=== PATIENT | male | born 1980 | race Caucasian/White ===

== ENCOUNTER 2020-01-05 11:30 | Inpatient (IN) | payer MEDICAID ==
[~2020-01-05] VITALS: Ht 185.4 cm; Wt 85.2 kg
[2020-01-05] MEDS ORDERED: morphine 2 MG/ML inj. syringe IV PRN (17:30)
[2020-01-05] MEDS ORDERED: magnesium 2GM in 50ml NS 50 ML IV PRN (17:30)
[2020-01-05] MEDS ORDERED: potassium CL 10mEq/100ml bag 100 ML IV PRN ×2 (17:30)
[2020-01-05] MEDS ORDERED: magnesium hydroxide 30ml (MOM) UD suspension PO PRN (17:30)
[2020-01-05] MEDS ORDERED: potassium Cl 20 mEq SR tablet PO PRN ×2 (17:30)
[2020-01-05] MEDS ORDERED: magnesium 4gm in 100ml NS 100 ML IV PRN (17:30)
[2020-01-05] MEDS ORDERED: magnesium Cl slow-release 64mg tablet PO PRN (17:30)
[2020-01-05] MEDS ORDERED: ondansetron/PF 4mg/2ml inj IV PRN (17:30)
[2020-01-05] MEDS ORDERED: mag hydrox/Alum hydrox/simeth 30ml oral suspension PO PRN (17:30)
[2020-01-05] MEDS ORDERED: LIDOcaine 2% 10ml TOPICAL JELLY (Urojet) TP ONE (17:30)
[2020-01-05] MEDS ORDERED: acetaminophen 325mg tablet PO PRN ×2 (17:30→17:50)
[2020-01-05] MEDS: normal saline 1000ml 1,000 ML IV SCH (17:49)
[2020-01-05 18:14] LABS: BASOPHILS # (AUTO) 0.1 X10'3 (0-0.2); BASOPHILS % (AUTO) 0.9 % (0-1); EOSINOPHILS # (AUTO) 0.1 X10'3 (0-0.9); EOSINOPHILS % (AUTO) 1.3 % (0-6); HEMATOCRIT 39.9 % (42.0-52.0); HEMOGLOBIN 12.8 g/dl (14.0-17.9); LYMPHOCYTES # (AUTO) 2.5 X10'3 (1.1-4.8); LYMPHOCYTES % (AUTO) 22.3 % (21-51); MEAN CORPUSCULAR HEMOGLOBIN 30.8 PG (27.0-31.0); MEAN CORPUSCULAR HGB CONC 32.1 g/dL (33.0-36.5); MEAN PLATELET VOLUME 9.2 FL (7.4-10.4); MONOCYTES # (AUTO) 1.6 X10'3 (0-0.9); MONOCYTES % (AUTO) 14.4 % (2-12); NEUTROPHILS # (AUTO) 6.9 X10'3 (1.8-7.7); NEUTROPHILS % (AUTO) 61.1 % (42-75); PLATELET COUNT 353 X10'3 (140-440); RED BLOOD COUNT 4.16 X10'6 (4.70-6.10); RED CELL DISTRIBUTION WIDTH 16.5 % (11.5-14.5); WHITE BLOOD COUNT 11.2 X10'3 (4.5-11.0)
[2020-01-05 18:21] LABS: ANION GAP 24 (8-16); BLOOD UREA NITROGEN 23 MG/DL (7-18); BUN/CREATININE RATIO 14.7 (5.4-32.0); CALCIUM 9.6 MG/DL (8.5-10.1); CHLORIDE 102 MMOL/L (99-107); CREATININE 1.56 MG/DL (0.60-1.10); GLUCOSE 164 MG/DL (70-104); MAGNESIUM 2.2 MG/DL (1.5-2.4); POTASSIUM 3.8 MMOL/L (3.5-5.1); SODIUM 141 MMOL/L (135-145); TOTAL CARBON DIOXIDE 15.1 MMOL/L (24-32); eGFR 50 ML/MIN
[2020-01-05 18:30] VITALS: BP 187/79
--- NOTE | 2020-01-05 18:34 | NUR ---
Recieved Report from Barbara from [facility]. Patient was reported to have stable vitals signs, with a heart rate that jumps up to the 150s and then comes back down, all other vital signs were reported as stable. 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 Patient arrived at 1717 to the floor, patient was transferred to the bed and was extremely diaphoretic, HR was reported to be in the 170s. Upon placing the patient on tele and getting a set of vital signs the patient's HR was in the 170s, RR was in the 60s, BP was 205/77 and the patient temp was 103.9 axillary. RN tried to have a rapid called and the CRN contacted admitting physician who reportedly was putting in orders for the patient. The patient had ice packs placed on groin and under the armpits. Patient was given tylenol by the Peg tube and was placed on a simple mask with o2 at 15L. RN stayed with patient until shift change as the oxygen mask was falling off due to the patient's movements. Gave report to on coming ANAT Talamantes.
[2020-01-05 19:00] VITALS: BP 138/77
[2020-01-05] MEDS: levetiracetam 100mg/ml oral solution 5ml UD cup GT SCH (19:03)
[2020-01-05] MEDS: docusate sodium 100mg/10ml UD cup PO SCH (19:05)
[2020-01-05] MEDS: K and/or MAG REPLACEMENT MC SCH (20:00)
[2020-01-05] MEDS ORDERED: MYCOL15CR TP (20:35)
[2020-01-05] MEDS ORDERED: PANT-47 IV (20:35)
[2020-01-05] MEDS ORDERED: LEVE10002 GT (20:35)
[2020-01-05] MEDS ORDERED: LIDO700A32 TOP (20:35)
[2020-01-05] MEDS ORDERED: POLY1DRO2 OP (20:41)
[2020-01-05] MEDS ORDERED: ACET-1008 GT ×2 (20:41)
[2020-01-05] MEDS ORDERED: DOCU1ENE3 RC (20:41)
[2020-01-05] MEDS ORDERED: POLY17PO10 GT (20:41)
[2020-01-05] MEDS ORDERED: PIPE3.3739 IV (20:41)
[2020-01-05] MEDS ORDERED: BENZOCAINE RC PRN (21:50)
[2020-01-05] MEDS ORDERED: DOCUSATE SODIUM RC PRN (21:50)
[2020-01-05] MEDS ORDERED: acetaminophen 325mg tablet GT PRN (21:50)
[2020-01-05] MEDS ORDERED: polyethylene glycol 3350 17gm powd pack GT PRN (21:50)
[2020-01-05 22:00] VITALS: BP 169/92
[2020-01-05] MEDS: piperacillin/tazo 3.375gm/50ml 50 ML IV SCH (23:44)
[2020-01-06] VITALS (7 sets, daily range): BP systolic 115–182; BP diastolic 52–89
[2020-01-06] MEDS: acetaminophen 325mg tablet GT PRN ×2 (04:01→11:47)
[2020-01-06 05:13] LABS: BASOPHILS # (AUTO) 0.1 X10'3 (0-0.2); BASOPHILS % (AUTO) 0.8 % (0-1); EOSINOPHILS % (AUTO) 0.1 % (0-6); HEMATOCRIT 41.1 % (42.0-52.0); HEMOGLOBIN 13.1 g/dl (14.0-17.9); LYMPHOCYTES # (AUTO) 1.8 X10'3 (1.1-4.8); LYMPHOCYTES % (AUTO) 14.7 % (21-51); MEAN CORPUSCULAR HEMOGLOBIN 30.1 PG (27.0-31.0); MEAN CORPUSCULAR HGB CONC 31.9 g/dL (33.0-36.5); MEAN CORPUSCULAR VOLUME 94.2 FL (78-98); MEAN PLATELET VOLUME 9.1 FL (7.4-10.4); MONOCYTES # (AUTO) 2.1 X10'3 (0-0.9); MONOCYTES % (AUTO) 17.1 % (2-12); NEUTROPHILS # (AUTO) 8.4 X10'3 (1.8-7.7); NEUTROPHILS % (AUTO) 67.3 % (42-75); PLATELET COUNT 351 X10'3 (140-440); RED BLOOD COUNT 4.36 X10'6 (4.70-6.10); RED CELL DISTRIBUTION WIDTH 16.2 % (11.5-14.5); WHITE BLOOD COUNT 12.4 X10'3 (4.5-11.0)
[2020-01-06 05:14] LABS: ANION GAP 15 (8-16); BLOOD UREA NITROGEN 34 MG/DL (7-18); BUN/CREATININE RATIO 25.8 (5.4-32.0); CHLORIDE 108 MMOL/L (99-107); CREATININE 1.32 MG/DL (0.60-1.10); GLUCOSE 58 MG/DL (70-104); MAGNESIUM 2.2 MG/DL (1.5-2.4); POTASSIUM 5.3 MMOL/L (3.5-5.1); SODIUM 147 MMOL/L (135-145); TOTAL CARBON DIOXIDE 23.8 MMOL/L (24-32); eGFR 60 ML/MIN
--- NOTE | 2020-01-06 06:12 | NUR ---
Problems reprioritized. Patient report given, questions answered & plan of care reviewed with Domitila COPPOLA.
--- NOTE | 2020-01-06 06:13 | NUR ---
Patient in room PCU 3028. I have received report from Domitila COPPOLA and had the opportunity to ask questions and assume patient care.
[2020-01-06 06:44] LABS: TOTAL CELLS COUNTED 100
[2020-01-06 06:45] LABS: MONOCYTES % (MANUAL) 17 % (2-12); NEUTROPHILS % (MANUAL) 70 % (42-75)
[2020-01-06 06:46] LABS: PLATELET ESTIMATE NORMAL
[2020-01-06 06:47] LABS: ANISOCYTOSIS 1+
[2020-01-06] MEDS: levetiracetam 100mg/ml oral solution 5ml UD cup GT SCH ×2 (07:05→20:50)
[2020-01-06] MEDS: pantoprazole 40 MG vial IV SCH ×2 (07:06→20:50)
[2020-01-06] MEDS: LIDOcaine 5% patch TP SCH (07:06)
[2020-01-06] MEDS: piperacillin/tazo 3.375gm/50ml 50 ML IV SCH ×2 (07:06→16:31)
[2020-01-06] MEDS: normal saline 1000ml 1,000 ML IV SCH (07:12)
[2020-01-06] MEDS: K and/or MAG REPLACEMENT MC SCH ×2 (07:13→20:00)
[2020-01-06] MEDS: docusate sodium 100mg/10ml UD cup PO SCH (07:13)
[2020-01-06] MEDS ORDERED: polyvinyl alcohol ophthalmic drops 15ml bottle EACHEYE PRN (08:00)
[2020-01-06] MEDS: nystatin/triamcinolone cream 15gm TP SCH ×2 (08:00→20:51)
[2020-01-06] MEDS ORDERED: mag hydrox/Alum hydrox/simeth 30ml oral suspension GT PRN (09:14)
[2020-01-06] MEDS ORDERED: magnesium hydroxide 30ml (MOM) UD suspension GT PRN (09:15)
[2020-01-06] MEDS ORDERED: POTASSIUM BICARB 20meq eff tab 20 MEQ TABLET.EFF PO PRN (09:16)
--- NOTE | 2020-01-06 11:05 | NUR ---
Patient thrashing in bed as nursing assoc tries to obtain blood pressure, will try blood pressure again once patient settles down. Addendum: 01/06/20 at 1238 by Susy Pérez RN Tried to retake BP on leg, BP wouldnt take due to patient thrashing in bed, not accurate.
--- NOTE | 2020-01-06 14:05 | NUR ---
Patients , Francy, called and was given a small update on the patients plan of care.
--- NOTE | 2020-01-06 14:34 | NUR ---
Spoke to OR, plan is to pick the pt up at 5 or 6 PM for surgery.
--- NOTE | 2020-01-06 14:54 | NUR ---
Attempted to call Dr Reed to obtain an order for Ativan as the patient is very distraught/anxious about surgery, will try again in a couple minutes. Addendum: 01/06/20 at 1458 by Susy Pérez RN Spoke to Dr Reed via telephone, MD orozco with one time ativan order, will continue to monitor the patient closely.
[2020-01-06] MEDS ORDERED: LORazepam 2 mg/ml vial IV ONE (15:00)
[2020-01-06] MEDS ORDERED: albuterol 2.5 MG/3 ML nebule CONTNEB PRN (15:05)
[2020-01-06] MEDS ORDERED: morphine 4 MG/ML inj SYRINge IV PRN (15:30)
[2020-01-06] MEDS ORDERED: ringers solution, lacted 1,000 ML IV SCH (15:30)
[2020-01-06] MEDS ORDERED: morphine 2 MG/ML inj. syringe IV PRN (15:30)
[2020-01-06] MEDS ORDERED: ondansetron/PF 4mg/2ml inj IV PRN (15:30)
[2020-01-06] MEDS ORDERED: proCHLORperazine 10 MG/2 ml inj IV PRN (15:30)
[2020-01-06] MEDS ORDERED: meperidine/PF 25mg/ml syringe IV PRN ×3 (15:30)
[2020-01-06] MEDS: sodium chloride 0.45% 1,000 ML IV SCH (15:34)
--- NOTE | 2020-01-06 16:18 | NUR ---
Spoke to patients mom, Barbara, and updated her on the patients plan of care.
[2020-01-06] MEDS ORDERED: famotidine/PF 10 mg/ml inj IV ONE (16:30)
[2020-01-06] MEDS ORDERED: glucagon, human recombinant 1mg kit SUBCUT PRN (16:45)
[2020-01-06] MEDS ORDERED: dextrose 50%-water 50ml dispensing syringe IV PRN ×2 (16:45)
--- NOTE | 2020-01-06 16:57 | NUR ---
Got a call from OR, Dr Winchester is going to do surgery tomorrow around noon.
--- NOTE | 2020-01-06 18:18 | NUR ---
Problems reprioritized. Patient report given, questions answered & plan of care reviewed with MIKAELA COPPOLA.
[2020-01-06] MEDS: mineral oil/petrolatum, white cream 113gm jar TP SCH (20:50)
[2020-01-06] MEDS: lactobacillus rhamnosus 10,000 MMU CELLS/CAPSULE PO SCH (20:50)
[2020-01-06] MEDS: docusate sodium 100mg/10ml UD cup GT SCH (20:51)
[2020-01-07] VITALS (12 sets, daily range): BP systolic 137–173; BP diastolic 50–82
[2020-01-07] MEDS: sodium chloride 0.45% 1,000 ML IV SCH (04:25)
[2020-01-07 05:44] LABS: ALBUMIN 2.9 G/DL (3.4-5.0); ANION GAP 10 (8-16); BLOOD UREA NITROGEN 33 MG/DL (7-18); CALCIUM 9.7 MG/DL (8.5-10.1); CHLORIDE 109 MMOL/L (99-107); CREATININE 1.03 MG/DL (0.60-1.10); GLUCOSE 112 MG/DL (70-104); MAGNESIUM 2.2 MG/DL (1.5-2.4); POTASSIUM 3.8 MMOL/L (3.5-5.1); SODIUM 146 MMOL/L (135-145); TOTAL CARBON DIOXIDE 27.3 MMOL/L (24-32); eGFR 80 ML/MIN
[2020-01-07 05:48] LABS: BASOPHILS # (AUTO) 0.1 X10'3 (0-0.2); EOSINOPHILS # (AUTO) 0.2 X10'3 (0-0.9); HEMOGLOBIN 11.9 g/dl (14.0-17.9); LYMPHOCYTES # (AUTO) 1.1 X10'3 (1.1-4.8); NEUTROPHILS # (AUTO) 3.4 X10'3 (1.8-7.7)
[2020-01-07 05:51] LABS: BASOPHILS % (AUTO) 1.1 % (0-1); EOSINOPHILS % (AUTO) 3.3 % (0-6); HEMATOCRIT 36.3 % (42.0-52.0); LYMPHOCYTES % (AUTO) 18.3 % (21-51); MEAN CORPUSCULAR HEMOGLOBIN 30.6 PG (27.0-31.0); MEAN CORPUSCULAR HGB CONC 32.7 g/dL (33.0-36.5); MEAN CORPUSCULAR VOLUME 93.7 FL (78-98); MEAN PLATELET VOLUME 8.7 FL (7.4-10.4); MONOCYTES # (AUTO) 1.2 X10'3 (0-0.9); MONOCYTES % (AUTO) 20.7 % (2-12); NEUTROPHILS % (AUTO) 56.6 % (42-75); PLATELET COUNT 321 X10'3 (140-440); RED BLOOD COUNT 3.88 X10'6 (4.70-6.10); RED CELL DISTRIBUTION WIDTH 16.3 % (11.5-14.5)
--- NOTE | 2020-01-07 06:19 | NUR ---
Problems reprioritized. Patient report given, questions answered & plan of care reviewed with ANAT Mariano.
--- NOTE | 2020-01-07 06:44 | NUR ---
Patient in room PCU 3028. I have received report from ANAT Capone and had the opportunity to ask questions and assume patient care. Patient asleep in bed and in no acute distress.
[2020-01-07 07:43] LABS: ANISOCYTOSIS 1+; PLATELET ESTIMATE NORMAL; TOTAL CELLS COUNTED 100
[2020-01-07] MEDS: lactobacillus rhamnosus 10,000 MMU CELLS/CAPSULE PO SCH ×2 (07:49→19:56)
[2020-01-07] MEDS: pantoprazole 40 MG vial IV SCH ×2 (07:49→19:57)
[2020-01-07] MEDS: piperacillin/tazo 3.375gm/50ml 50 ML IV SCH ×3 (07:49→15:56)
[2020-01-07] MEDS: nystatin/triamcinolone cream 15gm TP SCH ×2 (07:51→20:24)
[2020-01-07] MEDS: mineral oil/petrolatum, white cream 113gm jar TP SCH ×2 (07:51→20:24)
[2020-01-07] MEDS: LIDOcaine 5% patch TP SCH ×2 (07:51→08:00)
[2020-01-07] MEDS: docusate sodium 100mg/10ml UD cup GT SCH ×2 (07:52→19:56)
[2020-01-07] MEDS: K and/or MAG REPLACEMENT MC SCH ×2 (07:52→20:00)
[2020-01-07] MEDS: levetiracetam 100mg/ml oral solution 5ml UD cup GT SCH ×2 (09:53→19:56)
--- NOTE | 2020-01-07 11:08 | NUR ---
OR called and are sending up orders for patient to be picked up for procedure.
[2020-01-07] MEDS ORDERED: BUPIVAcaine/PF 2.5 mg/ml (0.25%) 30ml vial ONE (11:14)
[2020-01-07] MEDS ORDERED: famotidine/PF 10 mg/ml inj IV ONE (11:15)
--- NOTE | 2020-01-07 11:15 | NUR ---
Orders put in for 20mg pepcid IV per physician order for cholecystectomy.
--- NOTE | 2020-01-07 11:26 | NUR ---
Called report to ANAT Anand in recovery for patient to be picked up for cholecystectomy.
--- NOTE | 2020-01-07 11:44 | NUR ---
Patient left for cholecystectomy.
--- NOTE | 2020-01-07 11:51 | NUR ---
Called patient's mother Barbara to give her an update and that her son was going to get his cholecystectomy done today.
[2020-01-07] MEDS ORDERED: midazolam 2 mg/2 ml injection ONE (12:06)
[2020-01-07] MEDS ORDERED: fentaNYL/PF 50MCG/1 ML 2ML syringe ONE ×2 (12:06→12:38)
[2020-01-07] MEDS ORDERED: rocuronium 10mg/ml inj IV ONE ×2 (12:07→12:17)
[2020-01-07] MEDS ORDERED: LIDOcaine 2% (20mg/ml) 5ml vial ONE (12:07)
[2020-01-07] MEDS ORDERED: propofol inj 20 ML IV ONE (12:07)
[2020-01-07] MEDS ORDERED: sevoflurane 250ml liquid IH ONE (12:17)
[2020-01-07] MEDS ORDERED: sugammadex 200mg/2ml injection IV ONE (13:39)
--- NOTE | 2020-01-07 13:43 | NUR ---
Received from OR via , accompanied by Anesthesiologist DR DELCID and report given by Anesthesiolgist. AWAKENS TO VOICE. VITALS STABLE. DRESSINGS DI. SHAKES HEAD YES WHEN ASKED IF IN PAIN. WILL MEDICATE.
[2020-01-07] MEDS ORDERED: meperidine/PF 25mg/ml syringe ONE (14:08)
[2020-01-07] MEDS ORDERED: ringers solution, lacted 1,000 ML IV SCH (14:17)
[2020-01-07] MEDS ORDERED: proCHLORperazine 10 MG/2 ml inj IV PRN (14:20)
[2020-01-07] MEDS ORDERED: ondansetron/PF 4mg/2ml inj IV PRN (14:20)
[2020-01-07] MEDS ORDERED: morphine 2 MG/ML inj. syringe IV PRN (14:20)
[2020-01-07] MEDS ORDERED: meperidine/PF 25mg/ml syringe IV PRN ×3 (14:20)
[2020-01-07] MEDS ORDERED: morphine 4 MG/ML inj SYRINge IV PRN (14:20)
[2020-01-07] MEDS ORDERED: glycopyrrolate 0.2mg/ml inj ONE (14:22)
[2020-01-07] MEDS ORDERED: labetalol 20mg/4ml (5mg/ml) syringe IV ONE (14:22)
[2020-01-07] MEDS ORDERED: neostigmine methylsulfate 1 MG/ML 10ml vial ONE (14:22)
[2020-01-07] MEDS ORDERED: hydrALAZINE 20mg/ml inj. IV ONE (14:22)
[2020-01-07] MEDS ORDERED: ondansetron/PF 4mg/2ml inj ONE (14:22)
[2020-01-07] MEDS ORDERED: dexamethasone sod phosphate 4mg/ml inj. ONE (14:22)
--- NOTE | 2020-01-07 14:38 | NUR ---
Received report from ANAT Mendoza from recovery. Awaiting patient's arrival back to room 3028B.
--- NOTE | 2020-01-07 14:43 | NUR ---
Report called to receiving nurse. Transferred via BED Belongings . Special Issues communicated to receiving nurse. AWAKE AND ABLE TO COMMUNICATE NEEDS. VITALS STABLE. DRESSINGS DI. STATES PAIN IMPROVING BY NODDING YES. TO U RM 1407C AT THIS TIME.
--- NOTE | 2020-01-07 17:06 | NUR ---
Called patient's mother Barbara to give her an update on patient's cholecystectomy and was able to ask questions to be able to DART patient.
--- NOTE | 2020-01-07 18:00 | NUR ---
VS charted at 1800. Post op vitals were to end at 1900, however machine did not record correctly.
--- NOTE | 2020-01-07 18:30 | NUR ---
Patient in room PCU 3028. I have received report from ANAT Mariano and had the opportunity to ask questions and assume patient care.
--- NOTE | 2020-01-07 18:35 | NUR ---
Problems reprioritized. Patient report given, questions answered & plan of care reviewed with ANAT Padilla. Patient stable at transfer of care.
--- NOTE | 2020-01-07 18:45 | NUR ---
I have received report from ANAT Cruz and had the opportunity to ask questions and assume patient care.
--- NOTE | 2020-01-07 18:45 | NUR ---
Patient in room PCU 3028. I have received report from ANAT Mariano and had the opportunity to ask questions and assume patient care.
[2020-01-08] MEDS: sodium chloride 0.45% 1,000 ML IV SCH ×3 (00:11→11:27)
[2020-01-08] MEDS: piperacillin/tazo 3.375gm/50ml 50 ML IV SCH ×3 (00:14→15:52)
[2020-01-08 02:00] VITALS: BP 176/89
--- NOTE | 2020-01-08 04:17 | NUR ---
Patient's murphy was not draining properly, there was urine coming out of penis. I flushed the murphy, and it was stil leaking. A new murphy was placedm and it is no longer leaking around the meatus. Addendum: 01/08/20 at 0424 by Randy Garza RN Amended: Links added. Addendum: 01/08/20 at 0425 by Randy Garza RN The patient had the murphy placed previous to [facility];ization/ Patient came from [facility].
--- NOTE | 2020-01-08 04:26 | NUR ---
Day shift hooked up post op vitals. They qwere to be done around 1900 and nothing had been recorded on the vital machine. Addendum: 01/08/20 at 0427 by Randy Garza RN Amended: Links added.
[2020-01-08 05:16] LABS: ALBUMIN 2.7 G/DL (3.4-5.0); ANION GAP 12 (8-16); BLOOD UREA NITROGEN 24 MG/DL (7-18); BUN/CREATININE RATIO 27.3 (5.4-32.0); CHLORIDE 108 MMOL/L (99-107); CREATININE 0.88 MG/DL (0.60-1.10); GLUCOSE 99 MG/DL (70-104); MAGNESIUM 1.8 MG/DL (1.5-2.4); POTASSIUM 3.4 MMOL/L (3.5-5.1); SODIUM 148 MMOL/L (135-145); TOTAL CARBON DIOXIDE 27.9 MMOL/L (24-32); eGFR > 90 ML/MIN
[2020-01-08 05:31] LABS: BASOPHILS % (AUTO) 0.7 % (0-1); EOSINOPHILS % (AUTO) 0.7 % (0-6); HEMATOCRIT 36.4 % (42.0-52.0); HEMOGLOBIN 11.7 g/dl (14.0-17.9); LYMPHOCYTES # (AUTO) 1.1 X10'3 (1.1-4.8); MEAN CORPUSCULAR HEMOGLOBIN 30.3 PG (27.0-31.0); MEAN CORPUSCULAR HGB CONC 32.3 g/dL (33.0-36.5); MEAN CORPUSCULAR VOLUME 93.9 FL (78-98); MEAN PLATELET VOLUME 8.4 FL (7.4-10.4); MONOCYTES % (AUTO) 14.9 % (2-12); NEUTROPHILS # (AUTO) 4.7 X10'3 (1.8-7.7); NEUTROPHILS % (AUTO) 67.7 % (42-75); PLATELET COUNT 314 X10'3 (140-440); RED BLOOD COUNT 3.88 X10'6 (4.70-6.10); RED CELL DISTRIBUTION WIDTH 16.1 % (11.5-14.5)
--- NOTE | 2020-01-08 06:00 | NUR ---
Problems reprioritized. Patient report given, questions answered & plan of care reviewed with ANAT Mariano.
--- NOTE | 2020-01-08 06:08 | NUR ---
[facility] [place] [facility] documentation, and assessments this shift. I was present while she gave report and agreed with her report as well, and filled in when needed. Report was given to ANAT Mariano
--- NOTE | 2020-01-08 06:18 | NUR ---
Patient in room PCU 3028. I have received report from Randy, RN and Jolly, student nurse and had the opportunity to ask questions and assume patient care. Patient awake in bed, sitter at the bedside and in no acute distress.
[2020-01-08 07:00] VITALS: BP 162/79
[2020-01-08] MEDS: K and/or MAG REPLACEMENT MC SCH ×2 (08:00→20:00)
[2020-01-08] MEDS: LIDOcaine 5% patch TP SCH (08:00)
[2020-01-08] MEDS: pantoprazole 40 MG vial IV SCH ×2 (08:53→22:16)
[2020-01-08] MEDS: lactobacillus rhamnosus 10,000 MMU CELLS/CAPSULE PO SCH ×2 (08:53→22:16)
[2020-01-08] MEDS: docusate sodium 100mg/10ml UD cup GT SCH ×2 (08:54→22:16)
[2020-01-08] MEDS: levetiracetam 100mg/ml oral solution 5ml UD cup GT SCH ×2 (08:54→22:16)
[2020-01-08] MEDS: nystatin/triamcinolone cream 15gm TP SCH ×2 (08:55→20:00)
[2020-01-08] MEDS: mineral oil/petrolatum, white cream 113gm jar TP SCH ×2 (08:55→20:00)
[2020-01-08] MEDS: POTASSIUM BICARB 20meq eff tab 20 MEQ TABLET.EFF PO PRN ×2 (09:31→16:04)
[2020-01-08 11:00] VITALS: BP 145/80
--- NOTE | 2020-01-08 13:35 | NUR ---
Tube feeding consult. Per consult patient receives Jevity 1.2 at 130 ml/hr. Spoke to Maritza JAMES to confirm tube feeding rate and hours, at the [facility] was receiving Jevity 1.2 at 110 ml/hr for 23 hours. Patient has PEG feeding tube per bedside RN. Pt is s/p cholecystectomy. WOC following patient for left and right knee unstageable pressure ulcer. Recommend: 1. continuous tube feeding via PEG using Jevity 1.2 at 95 ml/hr will provide total volume of 2280 ml, 2736 calories, 127 g protein, 1840 ml water. 2. additional water flush 150 ml q 4 hours 3. daily wts, prealbumin q saturday/ Addendum: 01/08/20 at [address] Amended: Links added.
[2020-01-08 15:00] VITALS: BP 140/89
--- NOTE | 2020-01-08 16:19 | NUR ---
Problems reprioritized. Patient report given, questions answered & plan of care reviewed with ANAT Casey. Patient stable at transfer of care.
[2020-01-08 18:00] VITALS: BP 126/70
--- NOTE | 2020-01-08 18:33 | NUR ---
Problems reprioritized. Patient report given, questions answered & plan of care reviewed with ANAT Carrera.
--- NOTE | 2020-01-08 19:12 | NUR ---
Patient in room PCU 3028. I have received report from Carmela COPPOLA and had the opportunity to ask questions and assume patient care.
[2020-01-08 22:00] VITALS: BP 149/83
[2020-01-09] MEDS: piperacillin/tazo 3.375gm/50ml 50 ML IV SCH ×3 (00:55→16:07)
[2020-01-09] MEDS: sodium chloride 0.45% 1,000 ML IV SCH ×2 (00:59→13:23)
[2020-01-09 02:00] VITALS: BP 132/75
[2020-01-09 05:56] LABS: ALBUMIN 2.4 G/DL (3.4-5.0); ANION GAP 6 (8-16); BLOOD UREA NITROGEN 17 MG/DL (7-18); CALCIUM 8.9 MG/DL (8.5-10.1); CHLORIDE 110 MMOL/L (99-107); CREATININE 0.81 MG/DL (0.60-1.10); GLUCOSE 129 MG/DL (70-104); MAGNESIUM 1.8 MG/DL (1.5-2.4); POTASSIUM 3.8 MMOL/L (3.5-5.1); SODIUM 145 MMOL/L (135-145); TOTAL CARBON DIOXIDE 28.6 MMOL/L (24-32); eGFR > 90 ML/MIN
[2020-01-09 06:00] VITALS: BP 111/74
--- NOTE | 2020-01-09 06:37 | NUR ---
Patient in room PCU 3028. I have received report from ANAT Carrera and had the opportunity to ask questions and assume patient care. Patient awake in bed and in no acute distress.
--- NOTE | 2020-01-09 06:40 | NUR ---
Patient in room PCU 3028. I have received report from ANAT Huff and had the opportunity to ask questions and assume patient care.
--- NOTE | 2020-01-09 07:30 | NUR ---
Problems reprioritized. Patient report given, questions answered & plan of care reviewed with Montserrat COPPOLA.
[2020-01-09] MEDS: K and/or MAG REPLACEMENT MC SCH (08:00)
[2020-01-09] MEDS: LIDOcaine 5% patch TP SCH (08:00)
[2020-01-09] MEDS: pantoprazole 40 MG vial IV SCH ×2 (08:18→20:45)
[2020-01-09] MEDS: lactobacillus rhamnosus 10,000 MMU CELLS/CAPSULE PO SCH ×2 (08:25→20:47)
[2020-01-09] MEDS: docusate sodium 100mg/10ml UD cup GT SCH ×2 (08:25→20:46)
[2020-01-09] MEDS: levetiracetam 100mg/ml oral solution 5ml UD cup GT SCH ×2 (08:25→20:44)
[2020-01-09] MEDS: nystatin/triamcinolone cream 15gm TP SCH ×2 (08:25→20:48)
[2020-01-09] MEDS: mineral oil/petrolatum, white cream 113gm jar TP SCH ×2 (08:52→20:48)
[2020-01-09 11:00] VITALS: BP 133/80
[2020-01-09 15:00] VITALS: BP 99/77
--- NOTE | 2020-01-09 17:55 | NUR ---
Student Medication Administration: For this medication-pass time frame, all medication were reviewed, dispensed, administered and documented per hospital policy by dolores Helton nurse.
--- NOTE | 2020-01-09 17:55 | NUR ---
Student documentation: I have reviewed and agree with all interventions, assessments performed and documented by Sunitha student nurse.
[2020-01-09 18:00] VITALS: BP 127/58
--- NOTE | 2020-01-09 18:43 | NUR ---
Problems reprioritized. Patient report given, questions answered & plan of care reviewed with ANAT Carrera. Patient stable at transfer of care.
--- NOTE | 2020-01-09 18:56 | NUR ---
Patient in room PCU 3028. I have received report from Montserrat COPPOLA and had the opportunity to ask questions and assume patient care.
[2020-01-09] MEDS ORDERED: apixaban 2.5mg tablet PO SCH (20:00)
--- NOTE | 2020-01-09 20:00 | NUR ---
Report called to Derek COPPOLA at [facility], [facility]. Reviewed DC w/pt f/good understanding.
--- NOTE | 2020-01-09 21:30 | NUR ---
[facility] here f/pt. IV site flushed, tube feeding stopped, ceramic tile installer removed. Transferred to [facility] w/o incident. Pt. discharged
== END 2020-01-09 21:30 | DRG 263 ==
LOC: PCU 3S 11:30
PROVIDERS: ADMIT Internal Medicine Critical Care Medicine; ATTEND Internal Medicine Critical Care Medicine
PROC: 0FT44ZZ Resection of Gallbladder, Percutaneous Endoscopic Approach (ICD-10-PCS; principal; 2020-01-07 12:17)
DX: K81.2 Acute cholecystitis with chronic cholecystitis (principal); J96.00 Acute respiratory failure, unspecified whether with hypoxia or hypercapnia; K82.8 Other specified diseases of gallbladder; S27.329A Contusion of lung, unspecified, initial encounter; G25.5 Other chorea; Z86.711 Personal history of pulmonary embolism; Z90.81 Acquired absence of spleen
CPT/HCPCS: 36415; 80048; 82948; 83735; 85007; 85025; 85610; 86885; 86900; 86901; 87081; 93005; 94760; A4215; A4618; A7000; C9113; C9399; G0378; J0360; J1100; J2001; J2060; J2175; J2250; J2270; J2405; J2543; J2704; J2710; J3010; J3490; J7030; J7120; J7999

== ENCOUNTER 2020-02-18 13:02 | Day surgery (SDC) | payer MEDICAID ==
[2020-02-18] VITALS (10 sets, daily range): BP systolic 104–152; BP diastolic 66–89
[~2020-02-18] VITALS: Ht 182.9 cm; Wt 84.4 kg
[~2020-02-18 13:02] MED LIST: ACET-1008 GT; DOCU1ENE3 RC; LEVE10002 GT; LIDO700A32 TOP; MYCOL15CR TP; PANT-47 IV; PIPE3.3739 IV; POLY17PO10 GT; POLY1DRO2 OP; atropine 0.1mg/ml 10ml syringe ONE
[2020-02-18] MEDS ORDERED: normal saline 1000ml 1,000 ML IV SCH ×2 (13:15→13:50)
[2020-02-18 14:04] LABS: EOSINOPHILS # (AUTO) 0.1 X10'3 (0-0.9); LYMPHOCYTES # (AUTO) 1.4 X10'3 (1.1-4.8); MONOCYTES # (AUTO) 0.3 X10'3 (0-0.9); NEUTROPHILS # (AUTO) 1.6 X10'3 (1.8-7.7); WHITE BLOOD COUNT 3.6 X10'3 (4.5-11.0)
[2020-02-18 14:07] LABS: BASOPHILS % (AUTO) 1.1 % (0-1); EOSINOPHILS % (AUTO) 4.1 % (0-6); HEMATOCRIT 41.6 % (42.0-52.0); MEAN CORPUSCULAR HEMOGLOBIN 30.6 PG (27.0-31.0); MEAN CORPUSCULAR HGB CONC 33.7 g/dL (33.0-36.5); MEAN CORPUSCULAR VOLUME 90.8 FL (78-98); MEAN PLATELET VOLUME 7.6 FL (7.4-10.4); MONOCYTES % (AUTO) 9.4 % (2-12); NEUTROPHILS % (AUTO) 45.4 % (42-75); PLATELET COUNT 340 X10'3 (140-440); RED BLOOD COUNT 4.58 X10'6 (4.70-6.10); RED CELL DISTRIBUTION WIDTH 15.3 % (11.5-14.5)
[2020-02-18 14:08] LABS: ALBUMIN 3.3 G/DL (3.4-5.0); ANION GAP 5 (8-16); BLOOD UREA NITROGEN 7 MG/DL (7-18); CALCIUM 9.6 MG/DL (8.5-10.1); CHLORIDE 103 MMOL/L (99-107); CREATININE 0.78 MG/DL (0.60-1.10); GLUCOSE 92 MG/DL (70-104); POTASSIUM 3.9 MMOL/L (3.5-5.1); SODIUM 140 MMOL/L (135-145); TOTAL CARBON DIOXIDE 31.9 MMOL/L (24-32); eGFR > 90 ML/MIN
[2020-02-18] MEDS ORDERED: LORA-269 PO (14:10)
[2020-02-18] MEDS ORDERED: PRIM50TA27 PO (14:10)
[2020-02-18] MEDS ORDERED: LACT1CAP65 PO (14:10)
[2020-02-18] MEDS ORDERED: BACL20TA PO (14:10)
[2020-02-18] MEDS ORDERED: CARB15DR91 LEFT EAR (14:10)
[2020-02-18] MEDS ORDERED: ASPI-1053 PO (14:10)
[2020-02-18] MEDS ORDERED: DOCU-148 PO (14:10)
[2020-02-18] MEDS ORDERED: midazolam 2 mg/2 ml injection ONE ×4 (14:47→16:22)
[2020-02-18] MEDS ORDERED: LIDOcaine 1%/PF 5ML 10 MG/ML VIAL ONE (14:47)
[2020-02-18] MEDS ORDERED: fentaNYL/PF 50MCG/1 ML 2ML syringe ONE ×2 (14:48→16:22)
[2020-02-18] MEDS ORDERED: iohexol 300mg/ml 100ml inj. ONE ×2 (14:48→15:41)
[2020-02-18] MEDS ORDERED: heparin 1,000 UNITS/NS 500ml 500 ML ONE (15:41)
== END 2020-02-18 20:15 | disposition home or self-care (01) ==
LOC: SSTAY O 13:02
PROVIDERS: ATTEND Radiology Diagnostic Radiology
DX: Z46.89 Encounter for fitting and adjustment of other specified devices (principal); Z86.718 Personal history of other venous thrombosis and embolism; Z79.899 Other long term (current) drug therapy
CPT/HCPCS: 36415; 37193; 80048; 85025; 85610; 99152; 99153; C1769; C1894; J0461; J1644; J2250; J3010; Q9967; 76937